=== PATIENT | male | born 1950 | race Caucasian/White ===

== ENCOUNTER 2017-01-10 14:17 | Emergency (ER) | payer OTHER ==
[~2017-01-10] VITALS: Ht 157.5 cm; Wt 91.3 kg
[~2017-01-10 14:17] MED LIST: ALBUTEROL SULF8.5 GM IH; ASPIR-LOW81 MG PO; ASPIRIN81 M2 PO; ATORVASTATIN CA40 MG PO; CEFEPIME HCL2 GM IV; CLOPIDOGREL75 MG PO; COUMADIN,JANTOVE1 MG PO; DOCUSATE SODIU1 EAC1 PO; DUONEB 2.5-0.5 M3 ML IH; ENDOCET 5-3251 EACH PO; FEOSOL325 MG PO; HYDROCORTISONE5 MG PO; LEVOFLOXACIN750 MG PO; LEVOTHYROXINE150 MCG PO; LISINOPRIL5 MG PO; LOPRESSOR25 MG PO; NICODERM CQ1 EAC2 TD; PROTONIX40 MG PO; SPIRIVA1 INHALATI IH; TAMSULOSIN HCL0.4 MG PO
[2017-01-10 17:48] VITALS: BP 119/89
== END 2017-01-10 17:50 | disposition home or self-care (01) ==
LOC: EME 14:17
DX: J95.09 Other tracheostomy complication (principal); R06.02 Shortness of breath; E78.5 Hyperlipidemia, unspecified; Z79.82 Long term (current) use of aspirin; E66.01 Morbid (severe) obesity due to excess calories; Z68.36 Body mass index [BMI] 36.0-36.9, adult; Z87.891 Personal history of nicotine dependence
CPT/HCPCS: 31500; 71010; 71020; 99281; 99284

== ENCOUNTER 2017-01-11 16:02 | Emergency (ER) | payer OTHER ==
[~2017-01-11] VITALS: Ht 157.5 cm; Wt 92.1 kg
[2017-01-11 19:17] VITALS: BP 110/88
[2017-01-12] MEDS ORDERED: SYNTHROID175 MCG PO (00:13)
[2017-01-12] MEDS ORDERED: ZANTAC150 MG PO (00:13)
== END 2017-01-11 19:34 | disposition home or self-care (01) ==
LOC: EME → EDBD 16:02 → EME 19:34
DX: J95.03 Malfunction of tracheostomy stoma (principal); J44.9 Chronic obstructive pulmonary disease, unspecified; I10 Essential (primary) hypertension; I25.2 Old myocardial infarction; Z87.891 Personal history of nicotine dependence; Z79.82 Long term (current) use of aspirin
CPT/HCPCS: 94799; 99281; 99284

== ENCOUNTER 2017-01-11 21:19 | Inpatient (IN) | payer OTHER ==
[~2017-01-11] VITALS: Ht 160 cm; Wt 90.7 kg
[2017-01-11 22:06] LABS: HEMATOCRIT 52.2 % (38.0-50.0); MCH 28.8 PG (29.0-34.0); MCHC 31.8 G/DL (30.0-36.0); MCV 90.5 FL (86-99); MEAN PLAT.VOLUME 10.9 uM^3 (9.0-12.4); PLATELET COUNT 306 K/uL (156-360); RBC DIS.WIDTH-CV 13.1 % (11.8-14.6); RBC DIS.WIDTH-SD 43.1 % (39-53); RED BLOOD COUNT 5.77 M/uL (4.00-5.50); WHITE BLOOD COUNT 21.6 K/uL (4.1-10.2)
[2017-01-11 22:12] LABS: INTER. NORMALIZED RATIO 1.1
[2017-01-11 22:19] LABS: CHLORIDE 109 mEq/L (99-109); POTASSIUM 4.5 mEq/L (3.7-5.4); SODIUM 141 mEq/L (136-147)
[2017-01-11 22:20] LABS: GLUCOSE 168 mg/dL (70-99)
[2017-01-11 22:22] LABS: ANION GAP 12 MEQ/L (2-14)
[2017-01-11 22:24] LABS: GFR ESTIMATE (CALCULATED) 50 mL/min/
[2017-01-11 22:25] LABS: UREA NITROGEN (BUN) 16 mg/dL (9-23)
[2017-01-11 22:33] LABS: TROP-I INTERPRETATION NEGATIVE; TROPONIN-I < 0.01 ng/mL (0.0-0.30)
[2017-01-11 22:39] LABS: BASE EXCESS -5.3 mEq/L (-3 to +3); CARBOXY HGB 1.8 % (0-5); PCO2 46 mm Hg (35-45)
[2017-01-11 22:40] LABS: BICARBONATE 21.6 mEq/L (22-26); COMMENTS - BLOOD GASES A+C+; DEVICE 980; FI02 60 %; MODE SPONT; PEEP 5 CM/H20; PO2 94 mm Hg (80-100); PRES. SUPPORT 15 CM/H2O; SITE LR; pH 7.28 (7.35-7.45)
[2017-01-12] VITALS (20 sets, daily range): BP systolic 73–138; BP diastolic 51–88
[2017-01-12] MEDS ORDERED: ZANTAC150 MG PO (00:13)
[2017-01-12] MEDS ORDERED: SYNTHROID175 MCG PO (00:13)
[2017-01-12 02:35] LABS: METH RESISTANT S AUREUS PCR NEGATIVE (NEGATIVE)
[2017-01-12 02:36] LABS: PROBE CHECK PASS; SPECIMEN PROCESSING CONTROL PASS
[2017-01-12 02:46] LABS: BICARBONATE 22.7 mEq/L (22-26); CARBOXY HGB 1.9 % (0-5); COMMENTS - BLOOD GASES C+A+; DEVICE VENT; FI02 40 %; MECHANICAL RATE 12 resp/min; METHEMOGLOBIN 1.5 % (0-1.5); MODE AC; PCO2 42 mm Hg (35-45); PEEP 5 CM/H20; PO2 63 mm Hg (80-100); SITE RR; TIDAL VOLUME 350 ML; TOTAL RESP RATE 19 resp/min; pH 7.34 (7.35-7.45)
[2017-01-12 02:59] LABS: ADD MIUA? YES; BILIRUBIN NEGATIVE; BLOOD NEGATIVE; COLOR AMBER ((YELLOW)); GLUCOSE (STRIP) NEGATIVE; KETONES NEGATIVE; LEUKOCYTES SMALL; NITRITE NEGATIVE; PROTEIN (STRIP) 100; SPECIFIC GRAVITY 1.028 (1.000-1.030)
[2017-01-12 03:02] LABS: BACTERIA NONE SEEN /HPF; EPITHELIAL CELLS RARE /HPF; HYALINE CASTS 15-20 /LPF; MUCUS TRACE /LPF; UCUL ADDED? YES; WHITE BLOOD CELLS 15-20 /HPF (0-5)
[2017-01-12 03:02] LABS: CHLORIDE 108 mEq/L (99-109); POTASSIUM 4.5 mEq/L (3.7-5.4); SODIUM 139 mEq/L (136-147)
[2017-01-12 03:04] LABS: GLUCOSE 161 mg/dL (70-99)
[2017-01-12 03:05] LABS: ANION GAP 9 MEQ/L (2-14); EOSINOPHIL (%) 0 % (0-5); HEMATOCRIT 43.8 % (38.0-50.0); IMMATURE GRANULOCYTE (%) 0.6 % (0.0-0.7); IMMATURE GRANULOCYTE COUNT 0.1 K/uL; INSTRUMENT ABS NEUTROPHIL CT 11.3 K/uL; LYMPHOCYTE COUNT 0.8 K/uL (1.0-2.8); MCH 29.2 PG (29.0-34.0); MCHC 32.6 G/DL (30.0-36.0); MCV 89.6 FL (86-99); MONOCYTE (%) 1.3 % (3-12); MONOCYTE COUNT 0.2 K/uL (0-0.8); NEUTROPHIL (%) 91.8 % (45-76); NEUTROPHIL COUNT 11.3 K/uL (1.8-6.4); RBC DIS.WIDTH-SD 42.8 % (39-53); RED BLOOD COUNT 4.89 M/uL (4.00-5.50); WHITE BLOOD COUNT 12.3 K/uL (4.1-10.2)
[2017-01-12 03:08] LABS: GFR ESTIMATE (CALCULATED) 43 mL/min/; UREA NITROGEN (BUN) 17 mg/dL (9-23)
[2017-01-12 03:44] LABS: MEAN PLAT.VOLUME 10.8 uM^3 (9.0-12.4); PLAT.SUFFICIENCY ADEQUATE
[2017-01-12 03:45] LABS: PLATELET COUNT 212 K/uL (156-360)
[2017-01-13] VITALS: BP 95/51
[2017-01-13 04:00] VITALS: BP 93/48
[2017-01-13 08:00] VITALS: BP 116/68
[2017-01-13 11:00] VITALS: BP 137/78
== END 2017-01-13 16:40 | disposition home or self-care (01) | DRG 208 ==
LOC: EME 21:19 → EDOF 23:24 → 4WEST 23:24 → ENRESERV 23:26 → 4WEST 01-12 01:14 → ENPENDDIS 01-13 → 4WEST 01-13 08:54 → ENRESERV 01-13 09:00 → CANRESERV 01-13 12:00 → 4WEST 01-13 16:40
PROVIDERS: Emergency Medicine; Internal Medicine
DX: J96.01 Acute respiratory failure with hypoxia (principal); J95.09 Other tracheostomy complication; T17.490A Other foreign object in trachea causing asphyxiation, initial encounter; J39.8 Other specified diseases of upper respiratory tract; J38.6 Stenosis of larynx; J44.0 Chronic obstructive pulmonary disease with (acute) lower respiratory infection; J18.9 Pneumonia, unspecified organism; J20.9 Acute bronchitis, unspecified; Y95 Nosocomial condition; J44.1 Chronic obstructive pulmonary disease with (acute) exacerbation; J90 Pleural effusion, not elsewhere classified; J95.03 Malfunction of tracheostomy stoma; D63.8 Anemia in other chronic diseases classified elsewhere; D69.6 Thrombocytopenia, unspecified; E66.01 Morbid (severe) obesity due to excess calories; Z68.35 Body mass index [BMI] 35.0-35.9, adult; R60.1 Generalized edema; E88.09 Other disorders of plasma-protein metabolism, not elsewhere classified; E89.0 Postprocedural hypothyroidism; G47.33 Obstructive sleep apnea (adult) (pediatric); R73.9 Hyperglycemia, unspecified; T38.0X5A Adverse effect of glucocorticoids and synthetic analogues, initial encounter; I25.10 Atherosclerotic heart disease of native coronary artery without angina pectoris; I10 Essential (primary) hypertension; F32.9 Major depressive disorder, single episode, unspecified; I25.2 Old myocardial infarction; Z86.74 Personal history of sudden cardiac arrest; Z87.891 Personal history of nicotine dependence; Z96.651 Presence of right artificial knee joint
CPT/HCPCS: 36600; 71010; 80048; 81003; 82803; 83605; 84484; 85025; 85027; 85610; 85730; 87040; 87070; 87086; 87205; 87641; 93005; 94002; 94003; 94640; 94640 76; 94799; 97530 GP; 99202; 99281; 99285; C1751; C9113; J0456; J0696; J1100; J1644; J2060; J2250; J2543; J2930; J3010; J3370; J7030; J7040; J7050; J7608